=== PATIENT | female | born 2000 | race Two or more races ===

== ENCOUNTER 2024-06-07 04:00 | Outpatient (CLI) | payer OTHER | END 2024-06-07 04:15 | disposition home or self-care (01) | LOC: PPH VACUNA 04:00 | PROVIDERS: ATTEND Emergency Medicine Pediatric Emergency Medicine | DX: Z23 Encounter for immunization (principal) ==

== ENCOUNTER 2024-08-29 08:22 | Outpatient (CLI) | payer OTHER | END 2024-08-29 08:26 | disposition home or self-care (01) | LOC: RAD 08:22 | DX: R22.41 Localized swelling, mass and lump, right lower limb (principal) ==

== ENCOUNTER 2024-10-20 08:35 | Emergency (ER) | payer OTHER ==
[~2024-10-20] VITALS: Ht 170.2 cm; Wt 68.0 kg
[2024-10-20] MEDS ORDERED: ACETAMINOPHEN 500 MG GEL..CAP PO STA (09:10)
[2024-10-20] MEDS ORDERED: ACETAMINOPHEN 500 MG GEL..CAP PO ONE (09:34)
[2024-10-20 10:17] LABS: HEMATOCRIT 41.1 % (36.0-45.00); HEMOGLOBIN 14.2 g/dL (12.0-15.00); MEAN CELL VOLUME 92.9 fL (80.00-100.00); MEAN CORPUSCULAR HGB CONC 34.5 g/dl (32.0-36.0); PLATELET COUNT 226 K/uL (150-450); RED BLOOD COUNT 4.43 M/uL (4.00-6.00)
== END 2024-10-20 10:41 | disposition home or self-care (01) ==
LOC: ER 08:37
PROVIDERS: General Practice
DX: H60.8X1 Other otitis externa, right ear (principal); Z88.2 Allergy status to sulfonamides; Z88.6 Allergy status to analgesic agent; Z88.0 Allergy status to penicillin; Z91.013 Allergy to seafood; Z91.041 Radiographic dye allergy status

== ENCOUNTER 2024-11-15 10:12 | Emergency (ER) | payer OTHER ==
[~2024-11-15] VITALS: Ht 170.2 cm; Wt 68.5 kg
[2024-11-15] MEDS ORDERED: PEPCID AC20 MG PO (12:25)
== END 2024-11-15 13:10 | disposition home or self-care (01) ==
LOC: ER 10:15
DX: R53.81 Other malaise (principal); Z20.822 Contact with and (suspected) exposure to COVID-19; Z88.0 Allergy status to penicillin; Z88.2 Allergy status to sulfonamides; Z88.6 Allergy status to analgesic agent; Z91.040 Latex allergy status

== ENCOUNTER 2025-02-12 07:35 | Emergency (ER) | payer OTHER ==
[~2025-02-12] VITALS: Ht 177.8 cm; Wt 59.0 kg
[~2025-02-12 07:35] MED LIST: PEPCID AC20 MG PO
== END 2025-02-12 08:13 | disposition home or self-care (01) ==
LOC: ER 07:37
DX: J02.9 Acute pharyngitis, unspecified (principal); Z88.0 Allergy status to penicillin; Z88.2 Allergy status to sulfonamides; Z88.6 Allergy status to analgesic agent; Z91.041 Radiographic dye allergy status

== ENCOUNTER 2025-06-12 12:14 | Outpatient (CLI) | payer OTHER ==
[2025-06-12 13:03] LABS: BASO % 0.5 % (0.1-1.2); EOS # 0.03 (0.04-0.54); EOS % 0.4 % (0.7-7.0); LYMPH # 2.03 (1.18-3.74); LYMPH % 25.9 % (19.3-53.1); MEAN PLATELET VOLUME 10.50 fl (9.4-12.4); MONO # 0.45 (0.24-0.82); MONO % 5.7 % (4.7-12.5); NEUT # 5.25 (1.56-6.13); NEUT % 67.1 % (34.0-71.1); RED CELL DISTRIBUTION WIDTH 12.2 % (11.6-14.4)
[2025-06-12 13:10] LABS: URINE APPEARANCE Clear; URINE BILIRRUBIN Small (NEGATIVE); URINE BLOOD Negative; URINE COLOR Dark Yellow; URINE GLUCOSE Negative (NEGATIVE); URINE KETONE Negative (NEGATIVE); URINE LEUKOCYTE Small; URINE NITRATE Negative; URINE UROBILINOGEN 1.0 E.U./dl
[2025-06-12 13:14] LABS: URINE BACTERIA 1123.1 uL (0.0-1933); URINE EPITHELIAL CELLS 54.6 uL (0.0-38.8); URINE RBC 2.1 uL (0.0-20.8); URINE WBC 89.5 uL (0.0-23.2)
[2025-06-12 13:15] LABS: URINE CAST 0.87 uL (0.0-1.40); URINE PROTEIN 100 (NEGATIVE)
[2025-06-12 13:40] LABS: ALT/SGPT 23.0 U/L (12-78); AST/SGOT 16.0 U/L (15-37); BILIRUBIN TOTAL 0.96 mg/dL (0.3-1.2); BUN CREA RATIO 16.0 (7.0-25.0); CREATININE SERUM 0.7 mg/dL (0.55-1.02); GFR 101.15; GLOBULINA 2.5 G/DL (2.4-3.5); GLUCOSE FASTING 81.0 mg/dL (65-100); OSMOLALITY SERUM 280.0 MOSM/KG (275-295)
== END 2025-06-12 15:32 | disposition home or self-care (01) ==
LOC: LAB 12:14
DX: N39.0 Urinary tract infection, site not specified (principal); E11.9 Type 2 diabetes mellitus without complications

== ENCOUNTER 2025-06-20 14:45 | Outpatient (CLI) | payer OTHER | END 2025-06-20 14:55 | disposition home or self-care (01) | LOC: PPH VACUNA 14:45 | PROVIDERS: ATTEND Emergency Medicine Pediatric Emergency Medicine | DX: Z23 Encounter for immunization (principal) ==